=== PATIENT | female | born 1950 | race African-American/Black ===

== ENCOUNTER 2016-07-23 12:57 | Outpatient (CLI) | payer MEDICARE, MEDICAID | END 2016-07-23 12:58 | disposition home or self-care (01) | DX: R07.9 Chest pain, unspecified (principal); I25.10 Atherosclerotic heart disease of native coronary artery without angina pectoris; Z95.5 Presence of coronary angioplasty implant and graft; E11.9 Type 2 diabetes mellitus without complications; I10 Essential (primary) hypertension ==

== ENCOUNTER 2016-10-18 22:19 | Emergency (ER) | payer MEDICARE, MEDICAID | END 2016-10-19 01:37 | disposition home or self-care (01) | DX: R07.9 Chest pain, unspecified (principal); R00.0 Tachycardia, unspecified; I25.10 Atherosclerotic heart disease of native coronary artery without angina pectoris; Z95.5 Presence of coronary angioplasty implant and graft; Z79.02 Long term (current) use of antithrombotics/antiplatelets; I10 Essential (primary) hypertension; E11.9 Type 2 diabetes mellitus without complications; Z79.4 Long term (current) use of insulin ==

== ENCOUNTER 2016-11-24 16:02 | Outpatient (CLI) | payer MEDICARE, MEDICAID | END 2016-11-24 16:03 | disposition home or self-care (01) | LOC: DI 16:02 | PROVIDERS: ATTEND Physician Assistant | DX: M54.5 Low back pain (principal) ==

== ENCOUNTER 2016-12-21 15:13 | Outpatient (CLI) | payer MEDICARE, MEDICAID ==
--- NOTE | 2016-12-22 11:27 | Ultrasound Report ---
JARAD'S: 12/21/2016 CLINICAL INDICATION: Claudication. TECHNIQUE: Real-time sonographic vascular imaging was performed by the textiles and clothing teacher through the @@ utilizing both color-flow and Doppler flow analysis. Multiple bottling equipment sales representative static images were saved for review. RIGHT SIDE SITE [facility] STEN NURSING RESIDENT 58 monophasic DPA 13 monophasic LEFT SIDE SITE [facility] [employer] STEN NURSING RESIDENT 61 monophasic DPA 49 monophasic TECHNIQUE: Real-time scanning was performed. SYSTOLIC PRESSURES RIGHT LEFT BRACHIAL ARTERY 165/86 156/82 POSTERIOR TIBIAL ARTERY 135/81 132/95 ANTERIOR TIBIAL ARTERY --- --- PERONEAL ARTERY --- --- ANKLE/ARM INDEX 0.82 0.80 FINDINGS: ABIs are abnormal, measuring 0.82 on the right and 0.80 on the left. All ankle waveforms are monophasic. IMPRESSION: ABNORMAL BILATERAL JARAD'S. CONSIDER BILATERAL LOWER EXTREMITY ARTERIAL DUPLEX FOR FURTHER EVALUATION. LILYD
== END 2016-12-21 15:14 | disposition home or self-care (01) ==
LOC: DI 15:13
PROVIDERS: ATTEND Physician Assistant
DX: R93.8 Abnormal findings on diagnostic imaging of other specified body structures (principal)
CPT/HCPCS: 93922

== ENCOUNTER 2017-02-19 08:59 | Outpatient (CLI) | payer MEDICARE, MEDICAID ==
[2017-02-19 09:33] LABS: CALCIUM 9.2 mg/dL (8.5-10.3); CREATININE 0.8 mg/dL (0.4-1.0)
== END 2017-02-19 09:00 | disposition home or self-care (01) ==
LOC: LAB 08:59
PROVIDERS: ATTEND Internal Medicine
DX: I73.9 Peripheral vascular disease, unspecified (principal)
CPT/HCPCS: 36415; 80048

== ENCOUNTER 2017-10-03 01:47 | Outpatient (CLI) | payer MEDICARE, MEDICAID | END 2017-10-03 01:48 | disposition short-term general hospital (02) | LOC: EMS 01:47 | PROVIDERS: ATTEND Surgery | DX: R07.9 Chest pain, unspecified (principal) | CPT/HCPCS: A0425; A0427 ==

== ENCOUNTER 2017-10-13 13:27 | Outpatient (CLI) | payer MEDICARE, MEDICAID ==
--- NOTE | 2017-10-18 12:06 | Mammography Report ---
DIGITAL SCREENING MAMMOGRAM: 10/13/2017 CLINICAL INDICATION: A 67-year-old with history of benign left breast biopsy for screening. COMPARISON: 03/2014, 07/2011, 10/2007. TECHNIQUE: Routine CC and MLO projections were obtained of the breasts. FINDINGS: The breasts again demonstrate scattered fibroglandular densities bilaterally. A few punctate, typically benign calcifications are present. No suspicious masses, clustered microcalcifications, or regions of architectural distortion are identified. IMPRESSION: BENIGN FINDINGS. RECOMMENDATION: Routine annual screening unless otherwise clinically indicated. BI-RADS CATEGORY 2 - BENIGN FINDINGS. STANDARD QUALIFYING STATEMENTS: 1. This examination was reviewed with the aid of Computer-Aided Detection (CAD). 2. A negative or benign imaging report should not delay biopsy if clinically suspicious findings are present. Consider surgical consultation if warranted. More than 5% of cancers are not identified by imaging. 3. Dense breasts may obscure an underlying neoplasm. TD: 10/18/2017 11:49
== END 2017-10-13 13:28 | disposition home or self-care (01) ==
LOC: DI.N 13:27
PROVIDERS: ATTEND Internal Medicine
DX: Z12.31 Encounter for screening mammogram for malignant neoplasm of breast (principal)
CPT/HCPCS: 77067

== ENCOUNTER 2017-10-17 00:41 | Outpatient (CLI) | payer MEDICARE, MEDICAID | END 2017-10-17 00:42 | disposition short-term general hospital (02) | LOC: EMS 00:41 | PROVIDERS: ATTEND Surgery | DX: R07.9 Chest pain, unspecified (principal) | CPT/HCPCS: A0425; A0427 ==